=== PATIENT | male | born 1995 | race African-American/Black ===

== ENCOUNTER 2021-12-30 04:23 | Emergency (ER) | payer OTHER ==
[~2021-12-30] VITALS: Ht 180.3 cm; Wt 75.0 kg
[2021-12-30] MEDS ORDERED: KETOROLAC 15MG/ML VIAL IV ONE (09:15)
[2021-12-30 09:52] LABS: BASOPHILS % 0.4 % (0.0-2.0); EOSINOPHILS % 3.5 % (0.0-5.0); HEMATOCRIT. 46.8 % (42.0-52.0); HEMOGLOBIN. 15.7 g/dL (14.0-18.0); LYMPHOCYTES % 25.1 % (20.0-50.0); MEAN CORPUSCULAR HEMOGLOBIN 29.2 pg (28.0-32.0); MEAN CORPUSCULAR VOLUME 86.9 fL (80.0-94.0); MONOCYTES % 8.7 % (2.0-8.0); NEUTROPHILS % 62.3 % (40.0-76.0); RED BLOOD CELL COUNT 5.39 mill/uL (4.7-6.1); RED CELL DISTRIBUTION WIDTH 13.4 % (11.6-14.6)
[2021-12-30 10:37] LABS: MEAN PLATELET VOLUME 7.6 fl (7.4-10.4); PLATELET 266 x1000/uL (130-400)
[2021-12-30 10:50] LABS: CHLORIDE 106 mEq/L (98-107)
[2021-12-30 12:49] VITALS: BP 112/76
== END 2021-12-30 13:03 | disposition home or self-care (01) ==
LOC: EDSEX 04:23 → ER 04:23 → EDBD 04:23 → ER 13:03
DX: R07.89 Other chest pain (principal); I10 Essential (primary) hypertension; F17.210 Nicotine dependence, cigarettes, uncomplicated
CPT/HCPCS: 36415; 71045; 80053; 84484; 85025; 93005; 96374; 99285; J1885